=== PATIENT | female | born 2000 ===

== ENCOUNTER 2019-03-30 07:57 | Emergency (ER) | payer OTHER ==
[2019-03-30 08:12] VITALS: BP 120/67
--- NOTE | 2019-03-30 08:23 | UC ---
Head Injury HPI - HPI Summary HPI Summary: 19-year-old female presents with complaints of headache. States she was on a ride at [email or web address] yesterday she struck the sites of her head on the headrest several times. No loss of consciousness. States she developed a throbbing headache immediately afterwards as well as some nausea. States the headache has persisted despite taking ibuprofen. Notes mild dizziness, blurred vision, photophobia, phonophobia, and difficulty concentrating. States last menstrual period was over a month ago. States she is late on her period this month which is unusual for her. Currently taking oral control. Denies missing any doses. Denies double vision, seizure-like activity, slurred or difficulty speaking, facial droop, weakness, numbness, or tingling of the extremities, chest pain, palpitations, shortness of breath, abdominal pain, or vomiting. - History Of Current Complaint Chief Complaint: UCHeadache Stated Complaint: HEAD PAIN Time Seen by Provider: 03/30/19 08:02 Hx Obtained From: Patient Hx Last Menstrual Period: 02/24/19 Pain Intensity: 10 - Allergies/Home Medications Allergies/Adverse Reactions: Allergies Allergy/AdvReac Type Severity Reaction Status Date / Time amoxicillin Allergy Swelling Verified 03/30/19 08:04 Of Face,Lips,& Throat Home Medications: Home Medications Ibuprofen TAB* [Motrin TAB* 400 MG] 400 mg PO ONCE 03/30/19 [History Confirmed 03/30/19] Norethindrone-Ethinyl Estrad [Alexa] 1 tab PO DAILY 03/30/19 [History Confirmed 03/30/19] PMH/Surg Hx/FS Hx/Imm Hx Previously Healthy: Yes - Denies significant PMH - Surgical History Surgical History: None - Family History Known Family History: Positive: Non-Contributory - Social History Occupation: Employed Full-time Lives: With Family Alcohol Use: Rare Substance Use Type: None Smoking Status (MU): Smoker, Current Status Unknown Amount Used/How Often: vapes Review of Systems All Other Systems Reviewed And Are Negative: Yes Constitutional: Negative: Fever, Chills Eyes: Positive: Blurred Vision, Photophobia. Negative: Diplopia, Drainage, Eye Redness ENT: Positive: Negative Respiratory: Positive: Negative Cardiovascular: Positive: Negative Gastrointestinal: Positive: Nausea. Negative: Abdominal Pain, Vomiting, Diarrhea Genitourinary: Negative: Dysuria, Hematuria, Frequency, Urgency Musculoskeletal: Positive: Negative Neurological: Positive: Headache. Negative: Weakness, Paresthesia, Numbness Is Patient Immunocompromised?: No Physical Exam - Summary Physical Exam Summary: GENERAL APPEARANCE: Well developed, well nourished, alert and cooperative, and appears to be in no acute distress. HEAD: Atraumatic. Normocephalic. EYES: Conjunctiva clear. No drainage. PERRL, EOM intact. Vision is grossly intact. EARS: External auditory canals and tympanic membranes clear, hearing grossly intact. NOSE: No nasal discharge. THROAT: Pharynx normal No tonsilar inflammation, swelling, exudate, or lesions. Uvula midline. Oral cavity normal. Teeth and gingiva in good general condition. NECK: Neck supple, non-tender without lymphadenopathy. CARDIAC: Normal S1 and S2. No S3, S4 or murmurs. Rhythm is regular. There is no peripheral edema, cyanosis or pallor. Extremities are warm and well perfused. Capillary refill is less than 2 seconds. Peripheral pulses intact. LUNGS: Clear to auscultation without rales, rhonchi, wheezing or diminished breath sounds. ABDOMEN: Positive bowel sounds. Soft, nondistended, nontender. No guarding or rebound. No masses or hepatosplenomegally. MUSKULOSKELETAL: ROM intact to all extremities. No joint erythema or tenderness. Normal muscular development. Normal gait. NEUROLOGICAL: GCS 15. CN II-XII intact. Strength and sensation symmetric and intact throughout. Reflexes 2+ throughout. Cerebellar testing normal. SKIN: Skin normal color, texture and turgor with no lesions or eruptions. Triage Information Reviewed: Yes Vital Signs: Initial Vital Signs Temp 98.4 F 03/30/19 08:05 Pulse 69 03/30/19 08:05 Resp 18 03/30/19 08:05 BP 120/67 03/30/19 08:05 Pulse Ox 100 03/30/19 08:05 Vital Signs Reviewed: Yes Head Injury Course/Dx - Course Course Of Treatment: 19-year-old female presents with complaints of headache. States she was on a ride at [email or web address] yesterday she struck the sites of her head on the headrest several times. No loss of consciousness. States she developed a throbbing headache immediately afterwards as well as some nausea. States the headache has persisted despite taking ibuprofen. Notes mild dizziness, blurred vision, photophobia, phonophobia, and difficulty concentrating. States last menstrual period was over a month ago. States she is late on her period this month which is unusual for her. Currently taking oral control. Denies missing any doses. Denies double vision, seizure-like activity, slurred or difficulty speaking, facial droop, weakness, numbness, or tingling of the extremities, chest pain, palpitations, shortness of breath, abdominal pain, or vomiting. Afebrile. Vital signs stable. GCS 15. She was neurologically intact and her exam was overall unremarkable. Urine was negative. Discussed with patient that based on her history and exam she does not meet the [place] head CT criteria that clinically she likely has a concussion. Recommending conservative treatment including rest, [id number] analgesics, and ondansetron 4 mg every 8 hours as needed for nausea or vomiting. Patient states that she has an appointment with her PCP next week. She was encouraged to follow up with her PCP in 3 days if her symptoms were not improving. Anticipatory guidance and warning symptoms were reviewed with the patient. Verbalized understanding and agrees with plan of care. - Differential Dx/Diagnosis Differential Diagnosis/HQI/PQRI: Cerebral Contusion, Concussion Without LOC, Intracranial Bleed, Skull Fracture Provider Diagnosis: Concussion without loss of consciousness Discharge - Sign-Out/Discharge Documenting (check all that apply): Patient Departure All imaging exams completed and their final reports reviewed: No Studies - Discharge Plan Condition: Stable Disposition: HOME Prescriptions: Ondansetron ODT TAB* [Zofran 4 MG Odt TAB*] 4 mg PO Q8H PRN #9 tab.odt PRN Reason: Nausea/Vomiting Patient Education Materials: Concussion (ED) Forms: *Work Release Referrals: Derrick Fernandez NP [Primary Care Provider] - 3 Days Additional Instructions: Based on your history and exam you likely sustained a concussion. The urine test performed in the clinic today was negative. The most important thing you can do to help recover from a concussion is to get plenty of rest. You should avoid bright lights, loud sounds, activities that require a high degree of concentration, and screens including TV, computers, and cell phones. Take acetaminophen (Tylenol) or ibuprofen (Advil, Motrin) according to directions as needed for headache. Take ondansetron (Zofran) 4 mg 1 tablet every 8 hours as needed for nausea or vomiting. Follow up with your primary care provider in 3 days if no improvement in symptoms. Seek immediate medical attention in the emergency room if you develop a worsening headache despite taking acetaminophen or ibuprofen, you have one pupil that is larger than the other, develop any confusion, visual changes, dizziness, uses consciousness, develop seizure-like activity, have persistent or projectile vomiting, difficulty ambulating, or any worsening of symptoms. - Billing Disposition and Condition Condition: STABLE Disposition: Home
== END 2019-03-30 09:13 | disposition home or self-care (01) ==
LOC: UCEAST 07:57
DX: S06.0X0A Concussion without loss of consciousness, initial encounter (principal); W22.8XXA Striking against or struck by other objects, initial encounter; Y93.I1 Activity, roller coaster riding; Y92.831 Amusement park as the place of occurrence of the external cause; Y99.8 Other external cause status; F17.210 Nicotine dependence, cigarettes, uncomplicated
CPT/HCPCS: 81025; 99202; G0463

== ENCOUNTER 2019-09-22 14:56 | Emergency (ER) | payer SELFPAY ==
[2019-09-22 15:38] VITALS: BP 130/81
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
--- NOTE | 2019-09-23 07:25 | UC ---
- Progress Note Progress Note: On the lateral view there is suggestion of a nondisplaced fracture involving at least the anterior cortex of the body of the sternum. Please notify patient of XR result If it hurts > 2weeks it is a fx < 2 weeks a contusion no change in management should follow up with Dr. Anderson Course/Dx - Diagnoses Provider Diagnoses: Pain of sternum Discharge ED - Sign-Out/Discharge Documenting (check all that apply): Post-Discharge Follow Up All imaging exams completed and their final reports reviewed: Yes - Discharge Plan Condition: Stable Disposition: HOME Patient Education Materials: Contusion in Adults (ED) Referrals: Noah Anderson MD [Medical Doctor] - If Needed Additional Instructions: As discussed, your radiograph was reviewed by the provider that treated you tonight. It will be read by a radiologist tomorrow morning. If there is a finding other than that discussed with you today, you will receive a call from a care provider. Continue to rest and apply ice and/or heat to help relieve pain. You may also continue to take tylenol or ibuprofen as directed for pain relief. Follow up with Dr. Anderson listed below if your pain worsens or does not begin to resolve over the next week or two. - Billing Disposition and Condition Condition: STABLE Disposition: Home
== END 2019-09-22 18:27 | disposition home or self-care (01) ==
LOC: UCEAST 14:56
DX: R07.89 Other chest pain (principal); Z88.0 Allergy status to penicillin; Z87.891 Personal history of nicotine dependence; W50.0XXA Accidental hit or strike by another person, initial encounter; Y92.9 Unspecified place or not applicable; Y99.0 Civilian activity done for income or pay
CPT/HCPCS: 71120; 84702; 99211; G0463